=== PATIENT | female | born 1975 | race Caucasian/White ===

== ENCOUNTER 2017-03-30 19:56 | Inpatient (IN) | payer BC ==
[~2017-03-30] VITALS: Ht 160 cm; Wt 58.1 kg
[~2017-03-30 19:56] MED LIST: CELEXA20 MG PO; CLARITIN10 M3 PO; COLACE100 MG PO; IMITREX100 MG PO; NORCO 5/3251 TABLET PO; PREDNISONE20 MG PO; TESSALON200 MG PO; TOPAMAX50 MG PO; VENTOLIN HFA18 GM IH; WELLBUTRIN XL300 MG PO
[2017-03-30 21:34] LABS: HEMATOCRIT 38.8 % (36.0-46.0); MCH 29.9 PG (29.0-34.0); MCHC 32.5 G/DL (30.0-36.0); MCV 92.2 FL (83-99); MEAN PLAT.VOLUME 12.2 uM^3 (9.5-12.4); PLATELET COUNT 164 K/uL (156-360); RBC DIS.WIDTH-CV 12.3 % (11.8-14.6); RBC DIS.WIDTH-SD 41.6 % (39-53); RED BLOOD COUNT 4.21 M/uL (3.80-5.20); WHITE BLOOD COUNT 6.2 K/uL (4.1-10.2)
[2017-03-30 21:44] LABS: CHLORIDE 109 mEq/L (99-109); SODIUM 143 mEq/L (136-147)
[2017-03-30 21:46] LABS: GLUCOSE 83 mg/dL (70-99)
[2017-03-30 21:47] LABS: ANION GAP 12 MEQ/L (2-14)
[2017-03-30 21:49] LABS: GFR ESTIMATE (CALCULATED) > 59 mL/min/
[2017-03-30 21:50] LABS: UREA NITROGEN (BUN) 24 mg/dL (9-23)
[2017-03-30 21:58] LABS: QUANTITATIVE HCG < 4.0 MIU/ML
[2017-03-30] MEDS ORDERED: RELPAX40 MG PO (23:43)
[2017-03-30] MEDS ORDERED: WELLBUTRIN XL150 MG PO (23:43)
[2017-03-31] VITALS (14 sets, daily range): BP systolic 91–118; BP diastolic 39–63
[2017-03-31 01:06] LABS: INTER. NORMALIZED RATIO 1.1; PROTHROMBIN TIME 10.8 (9.2-11.2)
[2017-03-31 02:50] LABS: METH RESISTANT S AUREUS PCR NEGATIVE (NEGATIVE)
[2017-03-31 03:09] LABS: PROBE CHECK PASS; SPECIMEN PROCESSING CONTROL PASS
== END 2017-03-31 21:08 | disposition short-term general hospital (02) | DRG 54 ==
LOC: EME 19:56 → EDOF 03-31 00:10 → 4WEST 03-31 01:21
PROVIDERS: Emergency Medicine; Internal Medicine Critical Care Medicine
DX: C71.6 Malignant neoplasm of cerebellum (principal); I61.9 Nontraumatic intracerebral hemorrhage, unspecified; G93.6 Cerebral edema; G91.8 Other hydrocephalus; F17.210 Nicotine dependence, cigarettes, uncomplicated; G40.909 Epilepsy, unspecified, not intractable, without status epilepticus; M43.6 Torticollis; H53.149 Visual discomfort, unspecified; Z85.820 Personal history of malignant melanoma of skin; R26.2 Difficulty in walking, not elsewhere classified
CPT/HCPCS: 70450; 70544; 70553; 71260; 74177; 80048; 84702; 85027; 85610; 87641; 99281; 99285; J0780; J1100; J1200; J1885; J1953; J7030; J7040; J7050; S0028

== ENCOUNTER 2017-04-18 12:57 | Emergency (ER) | payer BC ==
[~2017-04-18] VITALS: Ht 162.6 cm; Wt 48.7 kg
[~2017-04-18 12:57] MED LIST changes: +RELPAX40 MG PO; +WELLBUTRIN XL150 MG PO
[2017-04-18 13:37] LABS: BASOPHIL COUNT 0.1 K/uL (0-0.1); EOSINOPHIL (%) 1.5 % (0-5); EOSINOPHIL COUNT 0.3 K/uL (0-0.3); HEMATOCRIT 45.3 % (36.0-46.0); IMMATURE GRANULOCYTE (%) 0.8 % (0.0-0.7); IMMATURE GRANULOCYTE COUNT 0.1 K/uL; INSTRUMENT ABS NEUTROPHIL CT 14.9 K/uL; LYMPHOCYTE COUNT 2.3 K/uL (1.0-2.8); MCH 30.4 PG (29.0-34.0); MCHC 32.7 G/DL (30.0-36.0); MEAN PLAT.VOLUME 10.7 uM^3 (9.5-12.4); MONOCYTE COUNT 0.7 K/uL (0-0.8); NEUTROPHIL (%) 81.1 % (45-76); NEUTROPHIL COUNT 14.9 K/uL (1.8-6.4); RBC DIS.WIDTH-CV 13.2 % (11.8-14.6); RBC DIS.WIDTH-SD 44.9 % (39-53); RED BLOOD COUNT 4.87 M/uL (3.80-5.20); WHITE BLOOD COUNT 18.4 K/uL (4.1-10.2)
[2017-04-18 13:51] LABS: PLATELET COUNT 341 K/uL (156-360)
[2017-04-18 13:52] LABS: CHLORIDE 105 mEq/L (99-109); SODIUM 145 mEq/L (136-147)
[2017-04-18 13:53] LABS: GLUCOSE 130 mg/dL (70-99)
[2017-04-18 13:55] LABS: ANION GAP 15 MEQ/L (2-14)
[2017-04-18 13:57] LABS: GFR ESTIMATE (CALCULATED) 59 mL/min/
[2017-04-18 13:58] LABS: UREA NITROGEN (BUN) 26 mg/dL (9-23)
[2017-04-18 14:04] LABS: TROP-I INTERPRETATION NEGATIVE; TROPONIN-I < 0.01 ng/mL (0.0-0.30)
[2017-04-18] MEDS ORDERED: ZOFRAN ODT4 MG PO (16:24)
[2017-04-18 18:13] VITALS: BP 110/73
== END 2017-04-18 18:14 | disposition home or self-care (01) ==
LOC: EME 12:57
PROVIDERS: Emergency Medicine
DX: E86.0 Dehydration (principal); R79.89 Other specified abnormal findings of blood chemistry; R11.10 Vomiting, unspecified; R56.9 Unspecified convulsions; Z87.891 Personal history of nicotine dependence
CPT/HCPCS: 70450; 71020; 71250; 80048; 84484; 85025; 93005; 99281; 99283; J2405; J7030

== ENCOUNTER 2017-07-14 14:29 | Emergency (ER) | payer BC ==
[~2017-07-14] VITALS: Ht 160 cm; Wt 50.2 kg
[~2017-07-14 14:29] MED LIST changes: +ZOFRAN ODT4 MG PO
[2017-07-14 14:55] LABS: HEMATOCRIT 37.1 % (36.0-46.0); MCH 30.3 PG (29.0-34.0); MCHC 32.6 G/DL (30.0-36.0); MEAN PLAT.VOLUME 11.2 uM^3 (9.5-12.4); PLATELET COUNT 212 K/uL (156-360); RBC DIS.WIDTH-CV 11.9 % (11.8-14.6); RBC DIS.WIDTH-SD 40.8 % (39-53); RED BLOOD COUNT 3.99 M/uL (3.80-5.20); WHITE BLOOD COUNT 10.6 K/uL (4.1-10.2)
[2017-07-14 15:11] LABS: CHLORIDE 106 mEq/L (99-109); SODIUM 139 mEq/L (136-147)
[2017-07-14 15:13] LABS: GLUCOSE 108 mg/dL (70-99)
[2017-07-14 15:15] LABS: ANION GAP 11 MEQ/L (2-14); TOTAL BILIRUBIN 0.4 mg/dL (0.0-1.0)
[2017-07-14 15:17] LABS: ALKALINE PHOSPHATASE 84 IU/L (3-129); GFR ESTIMATE (CALCULATED) > 59 mL/min/
[2017-07-14 15:18] LABS: UREA NITROGEN (BUN) 14 mg/dL (9-23)
[2017-07-14 15:26] LABS: QUANTITATIVE HCG < 4.0 MIU/ML
[2017-07-14 15:34] LABS: ADD MIUA? YES; BILIRUBIN NEGATIVE; BLOOD SMALL; COLOR AMBER ((YELLOW)); GLUCOSE (STRIP) NEGATIVE; KETONES 20; LEUKOCYTES MODERATE; NITRITE NEGATIVE; PROTEIN (STRIP) 100; SPECIFIC GRAVITY 1.025 (1.000-1.030); UROBILINOGEN 0.2 MG/DL (0.2-1.0)
[2017-07-14 15:51] LABS: RED BLOOD CELLS RARE /HPF (0-5)
[2017-07-14 15:52] LABS: BACTERIA 3+ /HPF; EPITHELIAL CELLS 1+ /HPF; MUCUS 1+ /LPF; UCUL ADDED? YES; WHITE BLOOD CELLS 20-30 /HPF (0-5)
[2017-07-14 15:54] LABS: CASTS NONE SEEN /LPF; CRYSTALS NONE SEEN
[2017-07-14] MEDS ORDERED: KEFLEX500 MG PO (17:24)
[2017-07-14 17:39] VITALS: BP 103/74
== END 2017-07-14 17:40 | disposition home or self-care (01) ==
LOC: EME 14:29
DX: R51 Headache (principal); N39.0 Urinary tract infection, site not specified; F32.9 Major depressive disorder, single episode, unspecified; R56.9 Unspecified convulsions; Z87.891 Personal history of nicotine dependence
CPT/HCPCS: 70450; 80053; 81003; 84702; 85027; 87077; 87086; 87186; 99281; 99283; J1885